=== PATIENT | female | born 1980 | race Caucasian/White ===

== ENCOUNTER 2020-03-05 08:53 | Emergency (ER) | payer MEDICAID, SELFPAY ==
[2020-03-05 09:04] VITALS: BP 155/88; PULSE 121; RESP 20; TEMP 36.8; O2SAT 100; BMI 25.6
--- NOTE | 2020-03-05 09:30 | CT_ITS ---
WS: [id number] CT ABDOMEN PELVIS TECHNIQUE: Contrast-enhanced CT of the abdomen and pelvis with coronal and sagittal reformatted image s. CLINICAL INFORMATION: large abdominal cyst? COMPARISON: None. DLP: 492.[address] scans at [facility] use at least one of these dose optimization techniques: automat ed exposure control; mA and/or kV adjustment per patient size (includes targeted exams where dose is matched to clinical indication); or iterative reconstruction. FINDINGS: Large low-attenuation peripherally enhancing abdominal mass. This demonstrates peripheral enhancing n odular components along the dorsal margin measuring 4 to 5 cm. A few septations. This extends from th e pelvis to the upper abdomen. This is eccentric to the right and suspicious for a right adnexal mass . Uterus appears displaced to the left. Mass measures approximately 16.1 x 2.5 x 30.2 cm AP by transv erse by craniocaudal. Findings are suspicious for ovarian neoplasm serous or mucinouscystadenoma/cyst adenocarcinoma.Suspected solid right ovarian lesion measuring 3.4 x 2.9 cm which abuts the large cyst ic lesion Patchy low-attenuation lesion in the right hepatic lobe likely cavernous hemangioma measuring 1.6 CM. Small amount of globular peripheral enhancement. Normal spleen. Normal caliber abdominal aorta. Norm al renal parenchymal enhancement. No hydronephrosis. Remainder of abdominal contents are not well kalie luated due to compressive abdominal mass. Lung bases are well aerated. Calcified granuloma right lowe r lobe. CT/CT abdomen pelvis w con* [id number] IMPRESSION: 1. Large low-attenuation peripherally enhancing abdominal and pelvic mass with dorsal enhancing nodular components and a few septations. 2. Large abdominal and pelvic mass suspected to be arising from the right adne xa with uterus displaced to the left. Primary differential considerations inclu de serous or mucinous ovarian cystadenoma/cystadenocarcinoma. Recommend SALES NEGOTIATOR/gen eral surgery consultation for resection. 3. Uterus is compressed right to left with mass effect dorsally. 4. Suspected solid right ovarian lesion measuring 3.4 x 2.9 cm which abuts the large cystic lesion 5. Small amount of free fluid in the pelvis. 6. Low-attenuation lesion right hepatic lobe likely cavernous hemangioma measu ring 1.6 cm. 7. No hydronephrosis in either kidney. Notified PHIL Han at 03/05/2020 11:22 AM.
--- NOTE | 2020-03-05 09:31 | ED_ITS ---
Documented by User: PHIL Han 03/06/20 07:09 HPI - Abdominal Pain General: Chief Complaint: Abdominal Pain Stated Complaint: ABDOMEN PAIN Time Seen by Provider: 03/05/20 09:04 History of Present Illness: HPI narrative: Patient states she has a large cyst and her abdominal pelvic area. Said she had a recent ultrasound done but they did not tell her what it was. Said she is been getting larger in her abdomen over the last year. She said she just recently had a negative test. She has a very distended abdomen. He said felt like her legs are also getting numb. Sepsis is got larger. MD elicited complaint: abdominal pain Onset (ago): month(s) Pain Consistency: constant Location: Diffuse Severity: moderate Quality: fullness Associated Symptoms: Reports no associated symptoms and other (Recently diagnosed with a cyst in her abdomen/pelvis denies said she had a negative test at doctor's office here recently. Did have an ultrasound done up in [place] a week or 2 ago.); Denies chills, fever(s), nausea and vomiting Related Data: Date of Last Menstrual Period: 02/21/20 Review of Systems Const: Denies: fever(s), chills or body aches Eyes: Denies: change in vision or blurry vision ENMT: Denies: throat pain or nasal congestion Card: Denies: chest pain or dyspnea on exertion Resp: Denies: dyspnea, productive cough or non-productive cough GI: Reports: abdominal pain and other (Recently diagnosed with a cyst in her abdomen/pelvis denies said she had a negative test at doctor's office here recently. Did have an ultrasound done up in [place] a week or 2 ago.); Denies: nausea or vomiting Musc: Denies: extremity pain Skin/Breast: Denies: rash Neuro: Reports: other (Says that her legs feel like they get numb at times.); Denies: headache(s) Psych: Denies: anxiety or depression Roosevelt/Lymph: Denies: easy bruising [facility] Female Reproductive History: Date of last menstrual period: 02/21/20 Physical Exam Const: COMMON NORMALS: no acute distress, average body habitus and patient oriented x3 HENMT: COMMON NORMALS: normocephalic HEAD & SCALP: normal to inspection and normocephalic FACE & SINUS: normal facial exam Eye: COMMON NORMALS: conjunctivae normal GENERAL EYE: appearance normal, both eyes and all related structures CONJUNCTIVA: Yes conjunctivae normal Neck/C-Spine: COMMON NORMALS: no JVD Chest: COMMONS NORMALS: normal inspection of the chest Resp: COMMON NORMALS: normal respiratory effort and clear to auscultation bilaterally AUSCULTATION: clear to auscultation bilaterally Cardio: COMMON NORMALS: no JVD, regular rate and regular rhythm RATE: regular rate RHYTHM: regular rhythm GI: INSPECTION: Yes abdominal distension (Very slender lady that appears to be and has a large distended abdomen that does not have any movement in it hard to [employer] any bowel sounds no tenderness with palpation rest of exam looks negative.) Extremity: COMMON NORMALS: normal to inspection and full ROM Neuro: COMMON NORMALS: patient oriented x3 Psych: ATTITUDE: Yes Other attitude/behavior findings present (Psych) (Patient is crying worried about what it might be since she talked in ER last night and they said she should came in a month ago.) Course Vital Signs: Vital signs: Vital Signs Temperature 98.6 F 03/05/20 10:32 Pulse Rate 94 03/05/20 13:01 Respiratory Rate 18 03/05/20 13:01 Blood Pressure 110/78 03/05/20 13:01 Pulse Oximetry 100 03/05/20 13:01 MDM - Abdominal Pain MDM Narrative: Medical decision making narrative: Care was discussed with Dr. Cramer care was turned over to her Lab Data: Labs: Lab Results 03/05/20 03/05/20 03/05/20 Range/Units 09:19 09:19 09:37 WBC 5.5 (4.0-10.0) 10^3/ uL RBC 4.37 (4.1-5.3) 10^6/u L Hgb 9.6 L (11.5-15.3) g/dL Hct 33.2 L (37.0-47.0) % MCV 76.0 L (81-99) fL MCH 22.0 L (28.0-34.0) pg MCHC 28.9 L (30.0-36.0) g/dL RDW 15.2 H (12.1-15.1) % Plt Count 287 (130-400) 10^3/c mm MPV 9.3 (7.4-10.4) fL Neut % (Auto) 72.2 % Lymph % (Auto) 18.3 % [place] % (Auto) 7.3 % Eos % (Auto) 1.3 % Baso % (Auto) 0.7 % Neut # (Auto) 3.94 (1.8-7.7) 10^3/u L Lymph # (Auto) 1.0 (0.8-4.8) 10^3/u L [place] # (Auto) 0.4 (0.2-0.9) 10^3/u L Eos # (Auto) 0.1 (0.0-0.8) 10^3/u L Baso # (Auto) 0.0 (0.0-0.1) 10^3/u L Nucleated RBC % (a uto) 0 % Nucleated RBCs # 0.0 /100WBC Sodium (136-145) mmol/L Potassium (3.5-5.1) mmol/L Chloride (98-107) mmol/L Carbon Dioxide (22-29) mmol/L Anion Gap (5-19) BUN (6-20) mg/dL Creatinine (0.5-0.9) mg/dL GFR Calculation (90-130) mL/min Glucose (65-115) mg/dL Calculated Osmolal ity (285-295) mOsm/k g Calcium (8.5-10.5) mg/dL Total Bilirubin (0.15-1.2) mg/dL AST (0-32) U/L ALT (0-33) U/L Alkaline Phosphata se (35-105) IU/L Total Protein (6.6-8.7) g/dL Albumin (3.5-5.2) g/dL Globulin (1.3-4.6) g/dL HCG, Qual Negative (Negative) Urine Color Yellow (Yellow) Urine Appearance Clear (CLEAR) Urine pH 5 (5-7) Ur Specific Gravit y 1.025 (1.005-1.030) Urine Protein Neg (Negative) Urine Glucose (UA) Norm (Normal) Urine Ketones 2+ H (Negative) Urine Blood Neg (Negative) Urine Nitrate Negative (Negative) Urine Bilirubin 1+ H (Negative) Urine Urobilinogen 1 H (Negative) mg/dL Ur Leukocyte Elif ase Negative (Negative) 03/05/20 Range/Units 09:37 WBC (4.0-10.0) 10^3/ uL RBC (4.1-5.3) 10^6/u L Hgb (11.5-15.3) g/dL Hct (37.0-47.0) % MCV (81-99) fL MCH (28.0-34.0) pg MCHC (30.0-36.0) g/dL RDW (12.1-15.1) % Plt Count (130-400) 10^3/c mm MPV (7.4-10.4) fL Neut % (Auto) % Lymph % (Auto) % [place] % (Auto) % Eos % (Auto) % Baso % (Auto) % Neut # (Auto) (1.8-7.7) 10^3/u L Lymph # (Auto) (0.8-4.8) 10^3/u L [place] # (Auto) (0.2-0.9) 10^3/u L Eos # (Auto) (0.0-0.8) 10^3/u L Baso # (Auto) (0.0-0.1) 10^3/u L Nucleated RBC % (a uto) % Nucleated RBCs # /100WBC Sodium 143 (136-145) mmol/L Potassium 3.8 (3.5-5.1) mmol/L Chloride 108 H (98-107) mmol/L Carbon Dioxide 23 (22-29) mmol/L Anion Gap 15.8 (5-19) BUN 9 (6-20) mg/dL Creatinine 0.5 (0.5-0.9) mg/dL GFR Calculation 137.4 H (90-130) mL/min Glucose 105 (65-115) mg/dL Calculated Osmolal ity 295 (285-295) mOsm/k g Calcium 9.4 (8.5-10.5) mg/dL Total Bilirubin 0.6 (0.15-1.2) mg/dL AST 15 (0-32) U/L ALT 17 (0-33) U/L Alkaline Phosphata se 46 (35-105) IU/L Total Protein 7.2 (6.6-8.7) g/dL Albumin 4.6 (3.5-5.2) g/dL Globulin 2.6 (1.3-4.6) g/dL HCG, Qual (Negative) Urine Color (Yellow) Urine Appearance (CLEAR) Urine pH (5-7) Ur Specific Gravit y (1.005-1.030) Urine Protein (Negative) Urine Glucose (UA) (Normal) Urine Ketones (Negative) Urine Blood (Negative) Urine Nitrate (Negative) Urine Bilirubin (Negative) Urine Urobilinogen (Negative) mg/dL Ur Leukocyte Elif ase (Negative) Discharge Plan Discharge Patient Disposition: Home Clinical Impression: Ovarian cyst Qualifiers: Laterality: right Qualified Code(s): N83.201 - Unspecified ovarian cyst, right side Condition: Stable Prescriptions: No Action ibuprofen 200 mg Tablet 400 - 600 mg PO PRN RF: 0 [place] 1.5 billion cell Capsule 1 cap PO DAILY RF: 0 Calcium 600-D3 Plus (mag-zinc) 600 mg calcium- 800 unit-50 mg Tablet 3 tab PO DAILY RF: 0 Vitamin C 1 tab PO DAILY RF: 0 vitamin E 1 cap PO DAILY RF: 0 Discharge Orders: Discharge Order (Routine); Ordered 03/05/20 Ordered By: Marifer Cramer Referrals: Silver Childress MD [Physician] - 1-3 days (check in to the clinic at 10:30 Wednesday morning for an ultrasound and appointment with Dr. Harris.) Discharge Diet: Usual diet Discharge Activity: Resume usual activity Patient Instructions: Ovarian Cyst (ED) Activity Restrictions/Additional Instructions: Plan on spending at least [address] Harris's office tomorrow to get the ultrasound and visit done. If you can, have the prior US sent to her office as well. Return if new or worse symptoms. Discharge Date/Time: 03/05/20 13:04 Coding Level of Care Code ED Director Of Market Intelligence for Chg Fwd Exam Comprehensive Documented by User: Marifer Cramer MD 03/05/20 20:04 HPI - Abdominal Pain General: Chief Complaint: Abdominal Pain Stated Complaint: ABDOMEN PAIN Time Seen by Provider: 03/05/20 09:04 Course ED course: I saw this patient with Shai Aldridge NP. Patient has had some swelling in her abdomen for as long as maybe even a year. She had an ultrasound about a week ago that showed a very large ovarian cyst. She said she had blood work done that said it was not cancer. She was told by someone that she needed to be seen immediately for this. Her symptoms were little bit worse today and she came to the ER. She is having some intermittent numbness and swelling in her left leg as well. CT here does show infection with a very large ovarian cyst which is mostly fluid-filled. There is some solid component to it as well as some nodularity and septation. I spoke with Dr. Harris on-call for [employer]ER[employer] TECHNICIAN. She will see the patient in the office tomorrow and get an ultrasound and office consultation. The patient understands this plan and what to expect tomorrow. She was very grateful for our help and the referral. She will return if any acute worsening before tomorrow. Vital Signs: Vital signs: Vital Signs Temperature 98.6 F 03/05/20 10:32 Pulse Rate 94 03/05/20 13:01 Respiratory Rate 18 03/05/20 13:01 Blood Pressure 110/78 03/05/20 13:01 Pulse Oximetry 100 03/05/20 13:01 MDM - Abdominal Pain Lab Data: Labs: Lab Results 03/05/20 03/05/20 03/05/20 Range/Units 09:19 09:19 09:37 WBC 5.5 (4.0-10.0) 10^3/ uL RBC 4.37 (4.1-5.3) 10^6/u L Hgb 9.6 L (11.5-15.3) g/dL Hct 33.2 L (37.0-47.0) % MCV 76.0 L (81-99) fL MCH 22.0 L (28.0-34.0) pg MCHC 28.9 L (30.0-36.0) g/dL RDW 15.2 H (12.1-15.1) % Plt Count 287 (130-400) 10^3/c mm MPV 9.3 (7.4-10.4) fL Neut % (Auto) 72.2 % Lymph % (Auto) 18.3 % [place] % (Auto) 7.3 % Eos % (Auto) 1.3 % Baso % (Auto) 0.7 % Neut # (Auto) 3.94 (1.8-7.7) 10^3/u L Lymph # (Auto) 1.0 (0.8-4.8) 10^3/u L [place] # (Auto) 0.4 (0.2-0.9) 10^3/u L Eos # (Auto) 0.1 (0.0-0.8) 10^3/u L Baso # (Auto) 0.0 (0.0-0.1) 10^3/u L Nucleated RBC % (a uto) 0 % Nucleated RBCs # 0.0 /100WBC Sodium (136-145) mmol/L Potassium (3.5-5.1) mmol/L Chloride (98-107) mmol/L Carbon Dioxide (22-29) mmol/L Anion Gap (5-19) BUN (6-20) mg/dL Creatinine (0.5-0.9) mg/dL GFR Calculation (90-130) mL/min Glucose (65-115) mg/dL Calculated Osmolal ity (285-295) mOsm/k g Calcium (8.5-10.5) mg/dL Total Bilirubin (0.15-1.2) mg/dL AST (0-32) U/L ALT (0-33) U/L Alkaline Phosphata se (35-105) IU/L Total Protein (6.6-8.7) g/dL Albumin (3.5-5.2) g/dL Globulin (1.3-4.6) g/dL HCG, Qual Negative (Negative) Urine Color Yellow (Yellow) Urine Appearance Clear (CLEAR) Urine pH 5 (5-7) Ur Specific Gravit y 1.025 (1.005-1.030) Urine Protein Neg (Negative) Urine Glucose (UA) Norm (Normal) Urine Ketones 2+ H (Negative) Urine Blood Neg (Negative) Urine Nitrate Negative (Negative) Urine Bilirubin 1+ H (Negative) Urine Urobilinogen 1 H (Negative) mg/dL Ur Leukocyte Elif ase Negative (Negative) 03/05/20 Range/Units 09:37 WBC (4.0-10.0) 10^3/ uL RBC (4.1-5.3) 10^6/u L Hgb (11.5-15.3) g/dL Hct (37.0-47.0) % MCV (81-99) fL MCH (28.0-34.0) pg MCHC (30.0-36.0) g/dL RDW (12.1-15.1) % Plt Count (130-400) 10^3/c mm MPV (7.4-10.4) fL Neut % (Auto) % Lymph % (Auto) % [place] % (Auto) % Eos % (Auto) % Baso % (Auto) % Neut # (Auto) (1.8-7.7) 10^3/u L Lymph # (Auto) (0.8-4.8) 10^3/u L [place] # (Auto) (0.2-0.9) 10^3/u L Eos # (Auto) (0.0-0.8) 10^3/u L Baso # (Auto) (0.0-0.1) 10^3/u L Nucleated RBC % (a uto) % Nucleated RBCs # /100WBC Sodium 143 (136-145) mmol/L Potassium 3.8 (3.5-5.1) mmol/L Chloride 108 H (98-107) mmol/L Carbon Dioxide 23 (22-29) mmol/L Anion Gap 15.8 (5-19) BUN 9 (6-20) mg/dL Creatinine 0.5 (0.5-0.9) mg/dL GFR Calculation 137.4 H (90-130) mL/min Glucose 105 (65-115) mg/dL Calculated Osmolal ity 295 (285-295) mOsm/k g Calcium 9.4 (8.5-10.5) mg/dL Total Bilirubin 0.6 (0.15-1.2) mg/dL AST 15 (0-32) U/L ALT 17 (0-33) U/L Alkaline Phosphata se 46 (35-105) IU/L Total Protein 7.2 (6.6-8.7) g/dL Albumin 4.6 (3.5-5.2) g/dL Globulin 2.6 (1.3-4.6) g/dL HCG, Qual (Negative) Urine Color (Yellow) Urine Appearance (CLEAR) Urine pH (5-7) Ur Specific Gravit y (1.005-1.030) Urine Protein (Negative) Urine Glucose (UA) (Normal) Urine Ketones (Negative) Urine Blood (Negative) Urine Nitrate (Negative) Urine Bilirubin (Negative) Urine Urobilinogen (Negative) mg/dL Ur Leukocyte Elif ase (Negative) Discharge Plan Discharge Patient Disposition: Home Clinical Impression: Ovarian cyst Qualifiers: Laterality: right Qualified Code(s): N83.201 - Unspecified ovarian cyst, right side Condition: Stable Prescriptions: No Action ibuprofen 200 mg Tablet 400 - 600 mg PO PRN RF: 0 [place] 1.5 billion cell Capsule 1 cap PO DAILY RF: 0 Calcium 600-D3 Plus (mag-zinc) 600 mg calcium- 800 unit-50 mg Tablet 3 tab PO DAILY RF: 0 Vitamin C 1 tab PO DAILY RF: 0 vitamin E 1 cap PO DAILY RF: 0 Discharge Orders: Discharge Order (Routine); Ordered 03/05/20 Ordered By: Marifer Cramer Referrals: Silver Childress MD [Physician] - 1-3 days (check in to the clinic at 10:30 Wednesday morning for an ultrasound and appointment with Dr. Harris.) Discharge Diet: Usual diet Discharge Activity: Resume usual activity Patient Instructions: Ovarian Cyst (ED) Activity Restrictions/Additional Instructions: Plan on spending at least [address] Harris's office tomorrow to get the ultrasound and visit done. If you can, have the prior US sent to her office as well. Return if new or worse symptoms. Discharge Date/Time: 03/05/20 13:04 Coding Level of Care Code ED Director Of Market Intelligence for Chg Fwd Exam Comprehensive
[2020-03-05 09:44] VITALS: BP 155/88; PULSE 90; RESP 18; O2SAT 100
[2020-03-05 09:44] LABS: Add Urine Microscopic? NO
[2020-03-05 09:45] LABS: Basophils % 0.7 %; Eosinophils # 0.1 10^3/uL (0.0-0.8); Eosinophils % 1.3 %; Hematocrit 33.2 % (37.0-47.0); Hemoglobin 9.6 g/dL (11.5-15.3); Lymphocytes % 18.3 %; Mean Corpuscular HGB Conc 28.9 g/dL (30.0-36.0); Mean Platelet Volume 9.3 fL (7.4-10.4); Monocytes # 0.4 10^3/uL (0.2-0.9); Monocytes % 7.3 %; Neutrophils # 3.94 10^3/uL (1.8-7.7); Neutrophils % 72.2 %; Nucleated Red Blood Cells % 0 %; Platelet Count 287 10^3/cmm (130-400); Red Blood Count 4.37 10^6/uL (4.1-5.3); Red Cell Distribution Width 15.2 % (12.1-15.1); White Blood Count 5.5 10^3/uL (4.0-10.0)
[2020-03-05 09:48] LABS: HCG Qualitative Urine. Negative (Negative)
[2020-03-05 09:49] LABS: Bilirubin Urine 1+ (Negative); Blood Urine Neg (Negative); Glucose Urine UA Norm (Normal); Ketones Urine 2+ (Negative); Leukocyte Esterase Urine Negative (Negative); Nitrate Urine Negative (Negative); Protein Urine Neg (Negative); Specific Gravity, Urine 1.025 (1.005-1.030); Urine Appearance Clear (CLEAR); Urine Color Yellow (Yellow); Urobilinogen Urine 1 mg/dL (Negative); pH Urine 5 (5-7)
[2020-03-05 10:08] LABS: Alanine Aminotransferase 17 U/L (0-33); Albumin Level 4.6 g/dL (3.5-5.2); Alkaline Phosphatase 46 IU/L (35-105); Anion Gap 15.8 (5-19); Aspartate Amino Transferase 15 U/L (0-32); Blood Urea Nitrogen 9 mg/dL (6-20); Calcium 9.4 mg/dL (8.5-10.5); Carbon Dioxide 23 mmol/L (22-29); Chloride 108 mmol/L (98-107); Globulin 2.6 g/dL (1.3-4.6); Glomerular Filtration Rate 137.4 mL/min (90-130); Glucose 105 mg/dL (65-115); Osmolality Calculated 295 mOsm/kg (285-295); Potassium 3.8 mmol/L (3.5-5.1); Sodium 143 mmol/L (136-145); Total Bilirubin 0.6 mg/dL (0.15-1.2); Total Protein 7.2 g/dL (6.6-8.7)
[2020-03-05 10:32] VITALS: BP 117/82; PULSE 94; RESP 18; TEMP 37; O2SAT 100
[2020-03-05] MEDS: iohexol 300 mg/mL 100 mL Btl IV (10:48)
[2020-03-05 12:31] VITALS: BP 110/78; PULSE 88; RESP 18; O2SAT 100
[2020-03-05 13:01] VITALS: BP 110/78; PULSE 94; RESP 18; O2SAT 100
--- NOTE | 2020-03-05 13:19 | DCPLANNER ---
digital experience manager was asked to give financial wellness coach paperwork to patient. digital experience manager gave patient financial wellness coach paperwork for the hospital to fill out and turn back in. digital experience manager called [facility] to speak with someone to see if patient would need to pay something at the visit tomorrow. Patient has an appointment scheduled for 03.06.20 at 10:30 for an ultrasound, and visit with Dr. Harris. [facility] spoke with patient about payment at visit tomorrow.
--- NOTE | 2020-03-23 16:45 | DCPLANNER ---
Patient had a follow up appointment scheduled for 03.06.20 with [facility] - patient did attend appointment.
== END 2020-03-05 13:04 | disposition home or self-care (01) ==
PROVIDERS: Nurse Practitioner Family; Emergency Provider Emergency Medicine
DX: N83.201 Unspecified ovarian cyst, right side (principal)
CPT/HCPCS: 12345; 74177; 80053; 81003; 81025; 85025; 99283; Q9967

== ENCOUNTER → 2020-03-06 11:22 | Outpatient (BNVA) | payer MEDICAID, SELFPAY | PROVIDERS: Visit Provider Obstetrics & Gynecology | DX: N83.202 Unspecified ovarian cyst, left side (principal) | CPT/HCPCS: 76830; 76856 ==